=== PATIENT | male | born 1940 | race Caucasian/White ===

== ENCOUNTER 2023-08-28 03:57 | Day surgery (SDC) | payer OTHER ==
[2023-08-22 16:19] VITALS: BMI 29.9
[2023-08-28] MEDS ORDERED: LIDOCAINE HCL/PF 2% SDV 5ML VIAL ONE (11:55)
[2023-08-28] MEDS ORDERED: ceFAZolin SODIUM 1 GM VIAL ONE ×2 (11:55→14:21)
[2023-08-28] MEDS ORDERED: PROPOFOL 20 ML ONE (11:55)
[2023-08-28] MEDS ORDERED: LIDOCAINE HCL 1%, 10 MG/ML (20ML VIAL) ONE (12:23)
[2023-08-28] MEDS ORDERED: BUPIVACAINE HCL/PF 0.5% (5MG/ML) 10 ML VIAL ONE (12:23)
[2023-08-28] MEDS ORDERED: ONDANSETRON 4 MG/2 ML VIAL IVPUSH PRN (12:39)
[2023-08-28] MEDS ORDERED: oxyCODONE HCL 5 MG TABLET PO PRN ×3 (12:39→14:42)
[2023-08-28] MEDS ORDERED: ceFAZolin SODIUM 1 GM VIAL IVPB ONE (13:05)
[2023-08-28] MEDS ORDERED: LIDOCAINE HCL 1%, 10 MG/ML (20ML VIAL) INF ONE (13:15)
[2023-08-28] MEDS ORDERED: BUPIVACAINE HCL/PF 0.5% (5 MG/ML) 30 ML VIAL IJ ONE (13:15)
[2023-08-28] MEDS ORDERED: ACETAMINOPHEN INJECTION 100 ML IVPB ONE (15:31)
[2023-08-28] MEDS: ACETAMINOPHEN 1000 MG/100 ML BAG IVPB SCH ×2 (15:38→22:55)
[2023-08-28] MEDS: LACTATED RINGERS SOLUTION 1,000 ML IV SCH (15:39)
[2023-08-28] MEDS ORDERED: INSULIN (NOVOLOG) ASPART 100 UNITS/ML 10ML VIAL ONE ×3 (18:53→21:10)
[2023-08-28] MEDS: INSULIN ASPART SLIDING SCALE (NOVOLOG) 1 VIAL SQ SCH ×2 (19:35→21:23)
[2023-08-28 21:29] VITALS: RESP 20
[2023-08-28] MEDS ORDERED: metFORMIN HCL 500 MG TABLET (FP) PO SCH (22:00)
[2023-08-29] MEDS: LACTATED RINGERS SOLUTION 1,000 ML IV SCH (01:27)
[2023-08-29] MEDS: ACETAMINOPHEN 1000 MG/100 ML BAG IVPB SCH (06:09)
[2023-08-29] MEDS: INSULIN ASPART SLIDING SCALE (NOVOLOG) 1 VIAL SQ SCH ×2 (06:30→11:41)
[2023-08-29 09:29] LABS: BASO % 0.1 % (0-2.0); HEMATOCRIT 31.9 % (35.4-49); HEMOGLOBIN 10.6 GM/dL (11.7-16.9); LYMPH % 8.4 % (8-40); MCH 31.8 pg (25.7-33.7); MCHC 33.4 g/dl (32.0-35.9); MEAN CELL VOLUME 95.3 fl (80-96); MEAN PLT VOLUME 9.9 fl (7.5-11.1); MONO % 6.7 % (3.8-10.2); NEUT % 84.8 % (42.8-82.8); PLATELET COUNT 170 10^3/uL (134-434); RBC 3.34 M/mm3 (4.00-5.60); RDW 13.1 % (11.9-15.9); WHITE BLOOD COUNT 14.6 K/mm3 (4.0-10.0)
[2023-08-29 09:50] LABS: POTASSIUM 4.1 mmol/L (3.5-5.1)
[2023-08-29 09:53] LABS: CALCIUM 8.5 mg/dL (8.5-10.1)
[2023-08-29 09:54] LABS: BLOOD UREA NITROGEN 24.6 mg/dL (7-18)
[2023-08-29 09:57] LABS: CREATININE 1.3 mg/dL (0.55-1.3)
[2023-08-29] MEDS ORDERED: LISINOPRIL 20 MG TABLET PO SCH (10:00)
[2023-08-29] MEDS ORDERED: ATORVASTATIN CA 40 MG TABLET (FP) PO SCH (10:00)
[2023-08-29] MEDS ORDERED: HYDROCHLOROTHIAZIDE 25 MG TABLET (FP) PO SCH (10:00)
[2023-08-29] MEDS ORDERED: ASPIRIN COATED 81 MG TABLET.EC PO SCH (10:00)
[2023-08-29] MEDS ORDERED: amLODIPine BESYLATE 10 MG TABLET (FP) PO SCH (10:00)
[2023-08-29 12:46] VITALS: BP 123/63; PULSE 65; TEMP 98.4
== END 2023-08-29 12:06 | disposition home or self-care (01) ==
LOC: JASUSAT 03:57 → SUATTDRO 03:57 → JASU-SURG 03:57 → J8W 16:41 → JASUSAT 08-29 12:06
PROVIDERS: ATTEND Nurse Practitioner Family
PROC: 0YU50JZ Supplement Right Inguinal Region with Synthetic Substitute, Open Approach (ICD-10-PCS; principal; 2023-08-28 11:00)
DX: K40.90 Unilateral inguinal hernia, without obstruction or gangrene, not specified as recurrent (principal)
CPT/HCPCS: 36415; 80048; 82962; 83036; 85025; 88302-TC; 94760; 97116-GP; 97161-GP; C1781